=== PATIENT | female | born 1960 | race Two or more races ===

== ENCOUNTER 2017-05-17 11:20 | Outpatient (CLI) | payer OTHER ==
[~2017-05-17] VITALS: Ht 154.9 cm; Wt 68.0 kg
== END 2017-05-17 11:40 | disposition home or self-care (01) ==
LOC: OFIC 805 11:20
DX: R09.81 Nasal congestion (principal); J30.89 Other allergic rhinitis

== ENCOUNTER 2018-10-04 08:02 | Outpatient (CLI) | payer OTHER | END 2018-10-04 15:00 | disposition home or self-care (01) | LOC: LAB 08:02 | DX: N91.1 Secondary amenorrhea (principal) ==

== ENCOUNTER → 2018-10-04 | Outpatient (CLI) | payer OTHER | END | disposition home or self-care (01) | LOC: MAMO-SONO 08:38 | DX: Z12.31 Encounter for screening mammogram for malignant neoplasm of breast (principal); Z87.898 Personal history of other specified conditions; N60.11 Diffuse cystic mastopathy of right breast ==

== ENCOUNTER 2022-01-28 13:09 | Outpatient (CLI) | payer OTHER | END 2022-01-28 13:15 | disposition home or self-care (01) | LOC: RAD 13:09 | PROVIDERS: ATTEND Physical Medicine & Rehabilitation | DX: S32.601A Unspecified fracture of right ischium, initial encounter for closed fracture (principal); M25.551 Pain in right hip ==